=== PATIENT | male | born 1970 | race Caucasian/White ===

== ENCOUNTER 2016-11-12 07:35 | Day surgery (SDC) | payer OTHER ==
[~2016-11-12 07:35] MED LIST: Lactated Ringers 1,000 ML IV SCH; Lidocaine 1%/Sod Bicarbonate in NS 8.4% 1 ML Syringe PRN; Sodium Chloride 0.9% 10 ML Syringe FLUSH PRN
[2016-11-12] MEDS ORDERED: Propofol 200 MG/20 ML SDV ONE ×2 (07:53→09:16)
[2016-11-12] MEDS ORDERED: Midazolam 1 MG/ML 2 ML SDV ONE (07:54)
[2016-11-12] MEDS ORDERED: fentaNYL 100 MCG/2 ML SDV ONE (07:54)
[2016-11-12] MEDS ORDERED: Lidocaine 1% 4 ML ONE (07:56)
--- NOTE | 2016-11-12 07:57 | PCM.PREANE ---
Preanesthetic Assessment - Procedure Proposed Procedure: Diagnostic colonoscopy - Anesthesia/Transfusion/Family Hx Anesthesia History: Prior Anesthesia Without Reaction Family History of Anesthesia Reaction: No Transfusion History: No Prior Transfusion(s) - Review of Systems General: No Symptoms Pulmonary: Other (ZHANNA with CPAP) Cardiovascular: No Symptoms Gastrointestinal: Other (GERD) Neurological: No Symptoms Other: Reports: Easy Bruising, Anxiety - Physical Assessment NPO Status Date: 11/11/16 NPO Status Time: 19:30 Pulse: 64 O2 Sat by Pulse Oximetry: 96 Respiratory Rate: 16 Blood Pressure: 149/89 Temperature: 36.0 C Height: 1.8 m Weight: 99.79 kg ASA Class: 2 Mental Status: Alert & Oriented x3 Airway Class: Mallampati = 2 Dentition: Reports: Normal Dentition Thyro-Mental Finger Breadths: 3 Mouth Opening Finger Breadths: 3 ROM/Head Extension: Full Lungs: Clear to Auscultation, Normal Respiratory Effort Cardiovascular: Regular Rate, Regular Rhythm - Allergies Allergies/Adverse Reactions: Allergies Allergy/AdvReac Type Severity Reaction Status Date / Time Sulfa (Sulfonamide Allergy Rash Verified 11/11/16 08:52 Antibiotics) - Blood Blood Available: No Product(s) Available: None - Anesthesia Plan Pre-Op Medication Ordered: None - Acknowledgements Anesthesia Type Planned: MAC Pt an Appropriate Candidate for the Planned Anesthesia: Yes Alternatives and Risks of Anesthesia Discussed w Pt/Guardian: Yes Pt/Guardian Understands and Agrees with Anesthesia Plan: Yes PreAnesthesia Questionnaire Respiratory History: Reports: Sleep Apnea Gastrointestinal History: Reports: Colon Polyp, GERD, Other (See Below) Other Gastrointestinal History: schatzki's ring Psychiatric History: Reports: Anxiety - Past Surgical History HEENT Surgical History: Reports: Tonsillectomy, Other (See Below) Other HEENT Surgeries/Procedures: sinus surgery GI Surgical History: Reports: Colonoscopy Other Musculoskeletal Surgeries/Procedures:: left shoulder adhesive capsulitis, closed fx left ulna with delayed healing - SUBSTANCE USE Smoking Status *Q: Never Smoker Second Hand Smoke Exposure: No Days Per Week of Alcohol Use: 0 Recreational Drug Use History: No - HOME MEDS Home Medications: Home Meds Omeprazole 20 mg PO DAILY 05/19/14 [History] Escitalopram [Lexapro] 10 mg PO DAILY 11/11/16 [History] - CURRENT (IN HOUSE) MEDS Current Meds: Current Medications Lactated Ringer's (Ringers, Lactated) 1,000 mls @ 125 mls/hr IV ASDIRECTED VICENTE Stop: 11/12/16 23:00 Lidocaine/Sodium Bicarbonate (Buffered Lidocaine 1% In Ns 8.4%) 0.25 ml .XX ONETIME PRN PRN Reason: Prior to IV Start Stop: 11/12/16 18:00 Sodium Chloride (Saline Flush) 10 ml FLUSH ASDIRECTED PRN PRN Reason: Keep Vein Open Stop: 11/12/16 18:00 Discontinued Medications Fentanyl (Sublimaze) Confirm Administered Dose 100 mcg .ROUTE .STK-MED ONE Stop: 11/12/16 07:55 Lidocaine HCl (Xylocaine-Mpf 1%) Confirm Administered Dose 4 mls @ as directed .ROUTE .STK-MED ONE Stop: 11/12/16 07:57 Midazolam HCl (Versed 1 Mg/Ml) Confirm Administered Dose 2 mg .ROUTE .STK-MED ONE Stop: 11/12/16 07:55 Propofol (Diprivan 20 Ml) Confirm Administered Dose 200 mg .ROUTE .STK-MED ONE Stop: 11/12/16 07:54
--- NOTE | 2016-11-12 09:19 | PCM.OPNOTE ---
- General Post-Op/Procedure Note Date of Surgery/Procedure: 11/12/16 Operative Procedure(s): Colonoscopy Findings: Anal tags with a small thrombosed external hemorrhoid and internal hemorrhoids Pre Op Diagnosis: History of rectal bleeding and past history of colon polyps Post-Op Diagnosis: 1. Anal tags. 2. External hemorrhoids with thrombosis. 3. 3 column internal hemorrhoids Anesthesia Technique: MAC, Moderate Sedation Primary Surgeon: Marco Hanks Pathology: None EBL in mLs: 0 Complications: None Condition: Good Free Text/Narrative:: After adequate IV sedation and analgesia was obtained with monitoring the patient was placed on his left side. Perianal inspection and digital rectal examination revealed the anal tags as well as the internal hemorrhoids. A small external hemorrhoid was thrombosed. On digital examination I could palpate the internal hemorrhoids. The sphincter tone was normal. There were no fissures seen. The prostate was also normal. A lubricated colonoscope was inserted into the rectum then advanced under direct vision to the cecum with air insufflation as necessary. The cecum right colon transverse and descending colons were endoscopically normal with no mass lesions or inflammatory changes seen. The sigmoid and rectum were unremarkable except for the retroflexed view in the rectum where I could see the internal hemorrhoids which were uncomplicated. Photographs are taken for the patient for the record. Air was removed as I finished the procedure which he tolerated well.
[2016-11-12 10:01] VITALS: BP 122/83
== END 2016-11-12 10:00 | disposition home or self-care (01) ==
LOC: JD.SDS 07:35
PROVIDERS: ATTEND Surgery
DX: K64.5 Perianal venous thrombosis (principal); K64.4 Residual hemorrhoidal skin tags; K64.8 Other hemorrhoids; K21.9 Gastro-esophageal reflux disease without esophagitis; F41.9 Anxiety disorder, unspecified; G47.33 Obstructive sleep apnea (adult) (pediatric); Z79.899 Other long term (current) drug therapy; Z98.890 Other specified postprocedural states
CPT/HCPCS: 45378; J2250; J3010; J7120; 00810; J2704

== ENCOUNTER → 2020-01-31 | Day surgery (SDC) | payer BC ==
[~2020-01-31] MED LIST changes: +Lidocaine 1% 4 ML ONE; +Lidocaine 1%/Sod Bicarbonate in NS 8.4% 1 ML Syringe IDERM PRN; -Lidocaine 1%/Sod Bicarbonate in NS 8.4% 1 ML Syringe PRN; +Propofol 200 MG/20 ML SDV ONE; +Simethicone Drops 40 MG/0.6 ML 30 ML Bottle ONE; +fentaNYL 100 MCG/2 ML SDV ONE
--- NOTE | 2020-01-31 08:27 | PCM.PREANE ---
Preanesthetic Assessment - Procedure Proposed Procedure: Colonoscopy - Anesthesia/Transfusion/Family Hx Anesthesia History: Prior Anesthesia Without Reaction Family History of Anesthesia Reaction: No Transfusion History: No Prior Transfusion(s) - Review of Systems General: No Symptoms Pulmonary: No Symptoms (ZHANNA with CPAP machine) Cardiovascular: No Symptoms (Hyperlipidemia) Gastrointestinal: No Symptoms Neurological: No Symptoms Other: Reports: Anxiety - Physical Assessment NPO Status Date: 01/31/20 NPO Status Time: 04:00 Vital Signs: Last Vital Signs Temp 36.9 C 01/31/20 07:30 Pulse 81 01/31/20 07:30 Resp 16 01/31/20 07:30 BP 154/97 H 01/31/20 07:30 Pulse Ox 95 01/31/20 07:30 Height: 1.8 m Weight: 110.1 kg ASA Class: 2 Mental Status: Alert & Oriented x3 Airway Class: Mallampati = 2 Dentition: Reports: Normal Dentition Thyro-Mental Finger Breadths: 3 Mouth Opening Finger Breadths: 3 ROM/Head Extension: Full Lungs: Clear to Auscultation, Normal Respiratory Effort Cardiovascular: Regular Rate, Regular Rhythm - Allergies Allergies/Adverse Reactions: Allergies Allergy/AdvReac Type Severity Reaction Status Date / Time Sulfa (Sulfonamide Allergy Rash Verified 01/31/20 07:36 Antibiotics) - Acknowledgements Anesthesia Type Planned: MAC Pt an Appropriate Candidate for the Planned Anesthesia: Yes Alternatives and Risks of Anesthesia Discussed w Pt/Guardian: Yes Pt/Guardian Understands and Agrees with Anesthesia Plan: Yes PreAnesthesia Questionnaire HEENT History: Reports: Allergic Rhinitis, Impaired Vision Cardiovascular History: Reports: High Cholesterol Respiratory History: Reports: Sleep Apnea Gastrointestinal History: Reports: Colon Polyp, GERD, Hemorrhoids, Other (See Below) Other Gastrointestinal History: schatzki's ring Genitourinary History: Reports: None [employer] History: Reports: None Musculoskeletal History: Reports: Other (See Below) Other Musculoskeletal History: LEFT SHOULDER ADHESIVE CAPSULITIS, LEFT ULNA FX, MUSCLE STRAIN Neurological History: Reports: None Psychiatric History: Reports: Anxiety Endocrine/Metabolic History: Reports: None Hematologic History: Reports: None Immunologic History: Reports: None Oncologic (Cancer) History: Reports: None Dermatologic History: Reports: Other (See Below) Other Dermatologic History: ACTINIC KERATOSIS, SKIN NEOPLASM, SEBORRHEIC KERATOSIS, TOENAIL FUNGUS - Infectious Disease History Infectious Disease History: Reports: None - Past Surgical History HEENT Surgical History: Reports: Myringotomy w Tube(s), Naso-Sinus Surgery, Tonsillectomy, Other (See Below) Other HEENT Surgeries/Procedures: sinus surgery Cardiovascular Surgical History: Reports: None Respiratory Surgical History: Reports: None GI Surgical History: Reports: Colonoscopy Female Surgical History: Reports: None Male Surgical History: Reports: None Endocrine Surgical History: Reports: None Neurological Surgical History: Reports: None Other Musculoskeletal Surgeries/Procedures:: LEFT FEMUR FRACTURE Oncologic Surgical History: Reports: None Dermatological Surgical History: Reports: None - SUBSTANCE USE Tobacco Use Status *Q: Never Tobacco User Recreational Drug Use History: No - HOME MEDS Home Medications: Home Meds Omeprazole 20 mg PO DAILY 05/19/14 [History] Escitalopram [Lexapro] 10 mg PO DAILY 11/11/16 [History] Rosuvastatin [Crestor] 10 mg PO DAILY 01/30/20 [History] - CURRENT (IN HOUSE) MEDS Current Meds: Current Medications Lactated Ringer's (Ringers, Lactated) 1,000 mls @ 125 mls/hr IV ASDIRECTED VICENTE Last Admin: 01/31/20 07:43 Dose: 125 mls/hr Documented by: Lidocaine/Sodium Bicarbonate (Buffered Lidocaine 1% In Ns 8.4%) 0.25 ml IDERM ONETIME PRN PRN Reason: Prior to IV Start Last Admin: 01/31/20 07:42 Dose: 0.25 ml Documented by: Sodium Chloride (Saline Flush) 10 ml FLUSH ASDIRECTED PRN PRN Reason: Keep Vein Open Discontinued Medications Lidocaine HCl (Xylocaine-Mpf 1%) Confirm Administered Dose 4 mls @ as directed .ROUTE .STK-MED ONE Stop: 01/31/20 07:21 Propofol (Diprivan 20 Ml) Confirm Administered Dose 200 mg .ROUTE .STK-MED ONE Stop: 01/31/20 07:20 Propofol (Diprivan 20 Ml) Confirm Administered Dose 200 mg .ROUTE .STK-MED ONE Stop: 01/31/20 08:12
--- NOTE | 2020-01-31 08:39 | PCM.PRNOTE ---
- Free Text/Narrative Note: Date: 01/31/2020 Procedure: screening colonoscopy Endoscopist: Sky Rodas MD Findings: Cecum reached with colonoscope. Prep was very good. No polyps identified. Minor internal hemorrhoids with external hemorrhoids. Detailed Report: The patient was taken to the endoscopy suite and placed in left lateral dec ubitus position. Time out was performed and monitored anesthesia care was initiated. Visual inspection of the anus revealed external hemorrhoids. Digital rectal exam was significant for hypertonic sphincter. The lubricated colonoscope was then inserted and advanced all the way to the cecum. The ileocecal valve and appendiceal orifice were visualized. The prep was very good. On slow withdrawal of the scope, mucosal surfaces were carefully inspected. No polyps were identified. On retroflexion within the rectum minor internal hemorrhoids were noted. Air was suctioned prior to removal of the scope. The patient tolerated the procedure well.
--- NOTE | 2020-01-31 08:42 | PCM48HPAN ---
Post Anesthesia Note - EVALUATION WITHIN 48HRS OF ANESTHETIC Vital Signs in Normal Range: Yes Patient Participated in Evaluation: Yes Respiratory Function Stable: Yes Airway Patent: Yes Cardiovascular Function Stable: Yes Hydration Status Stable: Yes Pain Control Satisfactory: Yes Nausea and Vomiting Control Satisfactory: Yes Mental Status Recovered: Yes Vital Signs: Last Vital Signs Temp 36.9 C 01/31/20 07:30 Pulse 81 01/31/20 07:30 Resp 16 01/31/20 07:30 BP 154/97 H 01/31/20 07:30 Pulse Ox 95 01/31/20 07:30
[2020-01-31 09:28] VITALS: BP 130/86; PULSE 79
== END | disposition home or self-care (01) ==
LOC: JD.SDS 07:06
PROVIDERS: ATTEND Surgery
DX: Z12.11 Encounter for screening for malignant neoplasm of colon (principal); K64.8 Other hemorrhoids; K64.4 Residual hemorrhoidal skin tags; K62.89 Other specified diseases of anus and rectum; F41.9 Anxiety disorder, unspecified; E78.00 Pure hypercholesterolemia, unspecified; E78.5 Hyperlipidemia, unspecified; Z88.2 Allergy status to sulfonamides; Z79.899 Other long term (current) drug therapy; Z01.812 Encounter for preprocedural laboratory examination; Z20.828 Contact with and (suspected) exposure to other viral communicable diseases
CPT/HCPCS: 45378; A9270; J2001; J2704; J3010; J7120; 00811

== ENCOUNTER 2023-11-11 09:55 | Emergency (ER) | payer BC, OTHER ==
[2023-11-11] MEDS: Ondansetron 4 MG/2 ML SDV IVPUSH ONE (10:42)
[2023-11-11] MEDS: Morphine 2 MG/ML SYRINGE IVPUSH ONE (10:42)
[2023-11-11 10:51] LABS: BASOPHILS PERCENT AUTO 0.4 % (0.0-1.0); EOSINOPHILS ABSOLUTE AUTO 0.1 K/mm3 (0.0-0.4); EOSINOPHILS PERCENT AUTO 1.4 % (0.0-6.0); HEMATOCRIT 41.2 % (42.0-52.0); IMMATURE GRAN ABSOLUTE AUTO 0.03 K/mm3 (0.00-0.05); IMMATURE GRAN PERCENT AUTO 0.4 % (0.0-0.4); LYMPHOCYTES ABSOLUTE AUTO 1.4 K/mm3 (1.0-4.8); LYMPHOCYTES PERCENT AUTO 17.5 % (24.0-44.0); MEAN CORPUSCULAR HEMOGLOBIN 28.2 pg (28.0-32.0); MEAN CORPUSCULAR VOLUME 82.9 fl (83.0-99.0); MEAN PLATELET VOLUME 9.5 fl (9.4-12.4); MONOCYTES ABSOLUTE AUTO 0.4 K/mm3 (0.0-0.8); MONOCYTES PERCENT AUTO 5.5 % (0.0-8.0); NEUTROPHILS PERCENT AUTO 74.8 % (41.0-71.0); PLATELET COUNT,PLT 192 K/mm3 (150-400); RED BLOOD CELL COUNT 4.97 M/mm3 (4.52-5.90); WHITE BLOOD CELL COUNT,WBC 7.95 K/mm3 (3.9-11.3)
[2023-11-11 11:10] LABS: INR 1.04
[2023-11-11 11:13] LABS: A/G RATIO 1.3 (1-2); ALBUMIN 3.9 g/dl (3.4-5.0); ANION GAP 12.8 (5-15); BILIRUBIN TOTAL 0.3 mg/dL (0.2-1.0); CALCIUM 8.9 mg/dL (8.5-10.1); EST CRCL DRUG DOSING (CG) 90.99 mL/min; POTASSIUM,K 4.8 mEq/L (3.5-5.1); PROTEIN TOTAL,TP 6.9 g/dl (6.4-8.2)
[2023-11-11] MEDS: Sodium Chloride 0.9% 1,000 ML IV ONE (11:56)
[2023-11-11] MEDS: fentaNYL 100 MCG/2 ML SDV IVPUSH ONE (12:49)
[2023-11-11 20:53] VITALS: BP 169/96; PULSE 70
== END 2023-11-11 13:37 ==
LOC: JD.ED 09:55
DX: S72.302A Unspecified fracture of shaft of left femur, initial encounter for closed fracture (principal); E78.00 Pure hypercholesterolemia, unspecified; K21.9 Gastro-esophageal reflux disease without esophagitis; Z88.2 Allergy status to sulfonamides; Z79.899 Other long term (current) drug therapy; W18.42XA Slipping, tripping and stumbling without falling due to stepping into hole or opening, initial encounter
CPT/HCPCS: 36415; 72170; 73552; 80053; 85025; 85610; 93005; 96374; 96375; 99285; J2270; J2405; J3010; J7030; 93010; 99284

== ENCOUNTER 2024-08-09 07:26 | Day surgery (SDC) | payer BC, OTHER ==
[~2024-08-09 07:26] MED LIST changes: -Lactated Ringers 1,000 ML IV SCH; -Lidocaine 1% 4 ML ONE; -Lidocaine 1%/Sod Bicarbonate in NS 8.4% 1 ML Syringe IDERM PRN; -Propofol 200 MG/20 ML SDV ONE; -Simethicone Drops 40 MG/0.6 ML 30 ML Bottle ONE; +Sodium Chloride 0.9% 10 ML Syringe FLUSH SCH; -fentaNYL 100 MCG/2 ML SDV ONE
[2024-08-09] MEDS: Lactated Ringers 1,000 ML IV SCH (07:45)
[2024-08-09] MEDS ORDERED: Propofol 200 MG/20 ML SDV ONE ×3 (08:06→08:18)
[2024-08-09] MEDS ORDERED: Metoprolol Tartrate 5 MG/5 ML SDV ONE (08:23)
[2024-08-09 14:35] VITALS: BP 143/90; PULSE 80
== END 2024-08-09 09:03 | disposition home or self-care (01) ==
LOC: JD.SDS 07:26
PROVIDERS: ATTEND Surgery
DX: Z12.11 Encounter for screening for malignant neoplasm of colon (principal); D12.8 Benign neoplasm of rectum; K64.0 First degree hemorrhoids; K21.9 Gastro-esophageal reflux disease without esophagitis; I10 Essential (primary) hypertension; E78.00 Pure hypercholesterolemia, unspecified; Z79.899 Other long term (current) drug therapy; Z88.2 Allergy status to sulfonamides; Z86.0100 Personal history of colon polyps, unspecified; Z80.0 Family history of malignant neoplasm of digestive organs; Z85.038 Personal history of other malignant neoplasm of large intestine
CPT/HCPCS: 45380; J2704; J3490; J7120; 00811